=== PATIENT | female | born 1955 | race African-American/Black ===

== ENCOUNTER 2025-06-23 01:06 | Inpatient (IN) | payer OTHER ==
[~2025-06-23] VITALS: Ht 157.5 cm; Wt 64.5 kg
--- NOTE | 2025-06-23 01:53 | ED.PDOC ---
GI ASSESSMENT HPI Comments HPI: 69-year-old female who came to ER for abdominal pain. For the past few hours patient has been experiencing constant, cramping, sharp, epigastric abdominal pain, associated and multiple bouts of nausea, vomiting more than 10 times, loose nonbloody diarrhea more done 10 times Past Medical History: Hepatitis-C, irritable bowel syndrome, mitral valve regurgitation Past Surgical History: Hysterectomy, appendectomy, hernia repair, neck surgery, gastric bypass done last 2017 a [facility] Social History: Denies HPI: Poor Historian. REVIEW OF SYSTEMS: CONSTITUTIONAL: Denies acute: fever, diaphoresis, chills, HEAD: Denies acute: headache, photophobia Eyes: Denies acute: Double vision, vision loss, eye pain, eye discharge. EARS: Denies acute: tinnitus, hearing loss, ear discharge, ear pain, THROAT: Denies acute: sore throat, swelling, difficulty swallowing , pain with swallowing, change in voice. NECK: Denies acute: neck pain, neck swelling, stiff neck. HEART: Denies acute : chest pain, palpitations, LUNGS: Denies acute: SOB, wheezing, cough, hemoptysis ABDOMEN: Denies acute: melena , hematemesis, hematochezia SKIN: Denies acute: rash, redness, lesions, itchiness. EXTREMITIES: Denies acute: calf pain, numbness, tingling, weakness, denies pain in extremity. Denies acute: Low back pain. Neuro: Denies acute: focal neurological deficit, motor or sensory focal neurological deficit, tremors, seizure like activity, confusion, dizziness, change in mental status, loss of bowel or bladder function, cauda equina like symptoms. : Denies acute: dysuria, hematuria, flank pain, increase in urinary frequency. PSYCH: Denies acute: hallucination, suicidal ideation, homicidal ideation. PHYSICAL EXAM: General: ---moderate----acute distress, awake and alert. Head: normocephalic, atraumatic. No raccoon's eyes, no ro sign. Neck: supple, trachea is midline, no swelling. Throat: Normal phonation. Eyes:, no erythema, no purulent discharge, no proptosis, no icterus. Heart: regular rate, regular rhythm, no significant murmur appreciated. Lungs: no apparent respiratory distress, Able to speak in full sentences. No wheezing, no rhonchi, no crackles. No stridors Clear to auscultation bilaterally. Abdomen: Periumbilical tender to palpation, non distended, soft, no guarding, no rebound, + bowel sounds. Neuro: Awake, Alert, oriented to name, self, situation, follows commands GCS=15. Speech is normal. Skin: no petechia, no purpura, no cyanosis, non-pale, not jaundice. Lower extremities: --no - Pitting edema no deformity, no focal swelling, no calf TTP. Makes eye contact. moves all four extremities. Face: no apparent facial droop. ED COURSE: DISCLAIMER: This medical document was created using an electronic medical record system with voice recognition software and computerized dictation system. Although this document has been carefully reviewed, there might still be some phonetic and typographical errors. Occasional wrong-word or "sound-alike" substitutions may have occurred due to the inherent limitations of voice recognition software. These areas are purely typographical due to imperfections of the software programs and do not reflect any compromise in the patient's medical care. Please read the chart carefully and recognize, using context, where these substitutions have occurred. Chief Complaint: Abdominal Pain Time Seen by MD: 01:52 Reviewed Notes: Nurses Notes, Allergies Allergies: Coded Allergies: Latex (Verified Allergy, Unknown, 06/23/25) Uncoded Allergies: CONTRAST (Allergy, Unknown, 06/23/25) Information Source: Patient Mode of Arrival: Ambulatory Was a procedure done? Was a procedure done?: No GI differential Dx Differential Diagnosis: Bowel Obstruction, Gastritis/PUD, Gastroenteritis, Other (DDX include Diverticulitis, colitis, gastroenteritis, acute abdomen, SBO, enteritis, constipation, volvulus, appendicitis, Gallbladder disease, choledocolithiasis, ascending cholangitis, pancreatitis, intraAbdominal mass/neoplasm, hepatitis, UTI, pylonephritis, kidney stone, aneurysm, disse ction, Inflammatory bowel disease, gastroparesis, ischemic bowel,,,,,,Food poisoning, bacterial/parasitic/viral etiology, trauma, diabetes DKA,ovarian torsion, ovarian cyst/mass, tubo-ovarian abscess, ) X-Ray, Labs, Meds, VS Vital Signs Date Time Temp Pulse Resp B/P (MAP) Pulse Ox O2 Delivery O2 Flow Rate FiO2 06/23/25 03:59 88 06/23/25 03:38 78 18 97 Room Air* 0 21 06/23/25 03:38 98.1 72 18 121/78 (92) 97 98.1 06/23/25 01:58 98.3 84 18 172/91 (118) 100 98.3 06/23/25 01:58 84 18 100 Room Air* 0 21 06/23/25 01:08 98.4 96 18 159/86 100 98.4 Lab Test 06/23/25 01:35 Range/Units White Blood Count 11.2 H 4.4-10.8 10^3/uL Red Blood Count 4.56 4.0-5.20 10^6/uL Hemoglobin 12.8 12.2-16.2 g/dL Hematocrit 38.2 36.0-46.0 % Mean Corpuscular Volume 83.7 80.0-100.0 fL Mean Corpuscular Hemoglobin 28.2 28.0-32.0 pg Mean Corpuscular Hemoglobin Concent 33.6 32.0-36.0 g/dL Red Cell Distribution Width 15.3 H 11.8-14.3 % Platelet Count 183 140-450 10^3/uL Mean Platelet Volume 9.9 6.9-10.8 fL Neutrophils (%) (Auto) 91.2 H 37.0-80.0 % Lymphocytes (%) (Auto) 5.7 L 10.0-50.0 % Monocytes (%) (Auto) 2.0 0.0-12.0 % Eosinophils (%) (Auto) 0.0 0.0-7.0 % Basophils (%) (Auto) 1.1 0.0-2.0 % Neutrophils # (Auto) 10.2 H 1.6-8.6 10 ^3/uL Lymphocytes # (Auto) 0.6 0.4-5.4 10 ^3/uL Monocytes # (Auto) 0.2 0-1.3 10 ^3/uL Eosinophils # (Auto) 0 0-0.8 10 ^3/uL Basophils # (Auto) 0.1 0-0.2 10 ^3/uL Nucleated Red Blood Cells 0.0 % Sodium Level 140 136-145 mmol/L Potassium Level 3.7 3.5-5.1 mmol/L Chloride Level 104 98-107 mmol/L Carbon Dioxide Level 22 20-31 mmol/L Anion Gap 14 5-15 Blood Urea Nitrogen 15 9-23 mg/dL Creatinine 0.83 0.550-1.02 mg/dL Glomerular Filtration Rate Calc 75 >90 mL/min BUN/Creatinine Ratio 18.1 10.0-20.0 Serum Glucose 153 H 74-106 mg/dL Hemoglobin A1c 5.5 <5.7 % A1C Lactic Acid Level 1.7 0.4-2.0 mmol/L Calcium Level 9.9 8.7-10.4 mg/dL Total Bilirubin 0.5 0.2-1.0 mg/dL Aspartate Amino Transferase (AST) 33 13-40 U/L Alanine Aminotransferase (ALT) 20 7-40 U/L Alkaline Phosphatase 87 46-116 U/L Total Protein 8.6 H 5.7-8.2 g/dL Albumin 5.0 H 3.2-4.8 g/dL Lipase 35 12-53 U/L Vitamin B12 Level Pending Vitamin D 25-Hydroxy 59.6 30.0-100 ng/mL Thyroid Stimulating Hormone (TSH) 1.49 0.55-4.78 uIU/mL [place] [id number] Ph: [phone] DIAGNOSTIC IMAGING Diagnostic Imaging Report : [id number] Signed PATIENT: SEKOU PITTMAN ACCT: [id number] UNIT: [id number] : 1955 LOC: ER ROOM / BED: / AGE / SEX: 69 / F ADM STATUS: REG ER SERVICE 0122 ORDERING PHYSICIAN: KRISTINA CUENCA DO PROCEDURE(s): ABPL - CT AB PEL WO CON-NO ORAL OR IV REASON: n/v/d abd pain ORDER NUMBER(s): [id number], ACCESSION NUMBER(s): [id number] Exam: CT CT AB PEL WO CON-NO ORAL OR IV History: n/v/d abd pain Comparison Study: None Technique: Multidetector spiral CT of the abdomen was performed from lung bases to pubic symphysis. Imaging was performed without IV contrast. Axial, coronal and sagittal multiplanar reformats were obtained from the axial data set by the technologist. Radiation Dose : 1. Abdomen/Pelvis: CTDIvol 5.38 mGy, DLP 296.86 mGy*cm. Findings: Evaluation of solid organs is limited due to lack of intravenous contrast use. Lung Bases: No acute or significant lung base finding. Normal heart size. No pleural or pericardial effusion. Liver: The liver is normal in size. No focal lesions. Gallbladder and Biliary Tree: Unremarkable Spleen: Unremarkable Pancreas: The pancreas is grossly normal in appearance. Adrenal Glands: Unremarkable Kidneys: Kidneys are grossly normal without calculi or hydronephrosis. Bladder: Grossly unremarkable for degree of distention. Bowel: Diffuse fluid-filled distention of the proximal, mid, and majority of the distal small bowel with loops measuring up to 4.2 cm in diameter. Fairly abrupt transition in the right lower quadrant although exact transition point difficult to visualized due to lack of intra-abdominal bowel fat. No pneumatosis, portal venous gas, or free air. Ascites: Absent Lymphadenopathy: No mesenteric, retroperitoneal or periportal lymphadenopathy. Abdominal Wall and Mesentery: Unremarkable. Vasculature: The visualized abdominal aorta is normal in size and caliber. Evaluation of abdominal and pelvic vessels is limited due to lack of intravenous contrast. Pelvic Organs: Unremarkable Musculoskeletal: No aggressive focal bony lesions, acute fractures or dislocation. IMPRESSION: Fairly high-grade distal small-bowel obstruction with fairly transition in the right lower quadrant, presumably related to an adhesive band. No ischemic changes at this time. Close follow-up recommended. Radiation optimization: All CT scans at this facility use at least one of these dose optimization techniques: automated exposure control mA and/or kV adjustment per patient size (includes targeted exams where dose is matched to clinical indication) or iterative reconstruction. ATED BY: ALFRED HURTADO MD DICTATED DATE/TIME: 06/23/25300 SIGNED BY: ALFRED HURTADO MD SIGNED DATE/TIME: 06/23/25300 CC: Time of 1ST Reevaluation: 01:50 Reevaluation 1ST: Unchanged Patient Education/Counseling: Diagnosis, Treatment Family Education/Counseling: No Family Present Comments MDM: patient presented with the above HPI.--abdominal pain GI symptoms----workup was initiated. patient was found with the above mentioned d iagnosis. the following medications were ordered: please refer to order lists of meds and tests obtained by myself Dr. Cuenca. Patient ED course and VS have been stabilized. Patient has been reassessed in the ED and remained in a stable condition. Pertinent incidental findings were discussed with the patient and/or family. Patient/family voices understanding and is agreeable with plan. Patient has been observed in the ED adequate length of time to insure improvement/stability. Escalation of care considered: Consideration of escalation to observation or admission Patient was found with a SBO. A consult for General surgery was placed. NG tube was ordered. Antibiotics given. Fluids and antiemetics. Patient was ADMITTED to the medicine team for further evaluation and treatment of their presentation. All the reports of any imaging studies that were ordered by myself were reviewed by myself. SEPSIS Sepsis Screen Date sepsis recognized/suspect: Jun 23, 2025 Time Sepsis recognized/suspect: 113 Recent Procedure: No On Antibiotic Therapy: No Respiratory Rate >20: No Heart Rate >90: Yes Temp<36 C (96.8 F) or >38.3 C: No SBP <90 or MAP <65 mmHG: No New Acute Mental Status Change: No Is the patient on CPAP, BIPAP,: No Physician Orders Stool Wbc (06/23/25 01:22) Ova & Parasite Exam (06/23/25 01:22) Stool Bacterial Culture (06/23/25 01:22) Clostridium Difficile Toxin (06/23/25 01:22) Ct Ab Pel Wo Con-No Oral Or Iv (06/23/25 01:22) * Surgical Consult (06/23/25 ) Ng/Orogastric Tube To Lis (06/23/25 03:18) Vital Signs Date Time Temp Pulse Resp B/P (MAP) Pulse Ox O2 Delivery O2 Flow Rate FiO2 06/23/25 03:59 88 06/23/25 03:38 78 18 97 Room Air* 0 21 06/23/25 03:38 98.1 72 18 121/78 (92) 97 98.1 06/23/25 01:58 98.3 84 18 172/91 (118) 100 98.3 06/23/25 01:58 84 18 100 Room Air* 0 21 06/23/25 01:08 98.4 96 18 159/86 100 98.4 Laboratory Tests Test 06/23/25 01:35 Lactic Acid Level 1.7 mmol/L (0.4-2.0) White Blood Count 11.2 10^3/uL (4.4-10.8) H Departure 1 Departure Time of Disposition: 03:18 Impression: Primary Impression: Small bowel obstruction Disposition: ADMITTED INPATIENT Admit to: Tele Condition: Guarded Discharged With: Self Critical Care Note Critical Care Time?: No I personally scribed for KRISTINA CUENCA DO ([email or web address]) on 06/23/25 at 01:53. Electronically submitted by Chetan Beck ([facility]). I personally scribed for KRISTINA CUENCA DO ([email or web address]) on 06/23/25 at 03:21. Electronically submitted by Chetan Beck ([facility] KRISTINA CUENCA DO Jun 23, 2025 01:53
[2025-06-23 01:58] VITALS: PULSE 84; RESP 18; O2SAT 100
[2025-06-23 02:13] LABS: Hematocrit 38.2 % (36.0-46.0); Hemoglobin 12.8 g/dL (12.2-16.2); Mean Corpuscular Hemoglobin 28.2 pg (28.0-32.0); Mean Corpuscular Volume 83.7 fL (80.0-100.0); Nucleated Red Blood Cells % 0.0 %
[2025-06-23] MEDS: SODIUM CHLORIDE 0.9% 1,000 ML IV ONE ×2 (02:20→04:15)
[2025-06-23] MEDS: ONDANSETRON HCL 4 MG/2 ML VIAL IV ONE (02:20)
[2025-06-23 02:22] LABS: Alanine Aminotransferase 20 U/L (7-40); Alkaline Phosphatase 87 U/L (46-116); Anion Gap 14 (5-15); BUN/Creatinine Ratio 18.1 (10.0-20.0); Bilirubin, Total 0.5 mg/dL (0.2-1.0); Blood Urea Nitrogen 15 mg/dL (9-23); Calcium 9.9 mg/dL (8.7-10.4); Carbon Dioxide 22 mmol/L (20-31); Chloride 104 mmol/L (98-107); Lipase 35 U/L (12-53); Potassium 3.7 mmol/L (3.5-5.1); Sodium 140 mmol/L (136-145)
[2025-06-23 02:29] LABS: Albumin 5.0 g/dL (3.2-4.8); Glucose 153 mg/dL (74-106); Total Protein 8.6 g/dL (5.7-8.2)
--- NOTE | 2025-06-23 03:03 | DVH ---
Exam: CT CT AB PEL WO CON-NO ORAL OR IV History: n/v/d abd pain Comparison Study: None Technique: Multidetector spiral CT of the abdomen was performed from lung bases to pubic symphysis. Imaging was performed without IV contrast. Axial, coronal and sagittal multiplanar reformats were obtained from the axial data set by the technologist. Radiation Dose : 1. Abdomen/Pelvis: CTDIvol 5.38 mGy, DLP 296.86 mGy*cm. Findings: Evaluation of solid organs is limited due to lack of intravenous contrast use. Lung Bases: No acute or significant lung base finding. Normal heart size. No pleural or pericardial effusion. Liver: The liver is normal in size. No focal lesions. Gallbladder and Biliary Tree: Unremarkable Spleen: Unremarkable Pancreas: The pancreas is grossly normal in appearance. Adrenal Glands: Unremarkable Kidneys: Kidneys are grossly normal without calculi or hydronephrosis. Bladder: Grossly unremarkable for degree of distention. Bowel: Diffuse fluid-filled distention of the proximal, mid, and majority of the distal small bowel with loops measuring up to 4.2 cm in diameter. Fairly abrupt transition in the right lower quadrant although exact transition point difficult to visualized due to lack of intra-abdominal bowel fat. No pneumatosis, portal venous gas, or free air. Ascites: Absent Lymphadenopathy: No mesenteric, retroperitoneal or periportal lymphadenopathy. Abdominal Wall and Mesentery: Unremarkable. Vasculature: The visualized abdominal aorta is normal in size and caliber. Evaluation of abdominal and pelvic vessels is limited due to lack of intravenous contrast. Pelvic Organs: Unremarkable Musculoskeletal: No aggressive focal bony lesions, acute fractures or dislocation. IMPRESSION: Fairly high-grade distal small-bowel obstruction with fairly transition in the right lower quadrant, presumably related to an adhesive band. No ischemic changes at this time. Close follow-up recommended. Radiation optimization: All CT scans at this facility use at least one of these dose optimization techniques: automated exposure control mA and/or kV adjustment per patient size (includes targeted exams where dose is matched to clinical indication) or iterative reconstruction.
[2025-06-23 03:38] VITALS: PULSE 78; RESP 18; O2SAT 97
--- NOTE | 2025-06-23 04:11 | DVHHPRES ---
History of Present Illness Resident Creating Document: [facility] RESIDENT History of Present Illness Ms Eva Stacy, 69-year-old female with past medical history of Raynaud's syndrome, hepatitis-C positive on remission, lichen planus, IBS, mitral valve regurgitation, multiple abdominal surgeries presented to the ER with the complaints of abdominal pain, nausea, bloating that started since this afternoon 30 minutes after eating a sandwich. She describes the pain as gradual onset, located in the epigastric and periumbilical region. There was no aggravating or relieving factor. The abdominal pain was associated with vomiting and diarrhea. She denies any sick contacts, she is from [place], currently visiting her cousin in [place]. She denies any chest pain, shortness of breath, fever or any other complaints. She will undergo or rectal manometry on 05 January possibly due to chronic constipation. She has done a colonoscopy last year which was unremarkable, she will do FIT test next year. The patient has a cardiac stress test scheduled in November next year, Past medical history: Raynaud syndrome, IBS, mitral valve regurgitation, gastric ulcer, hepatitis-C positive, lichen planus Past surgical history: 2 ectopic , patial hysterectomy, appendectomy, abdominal hernia repair surgery Home medications: Amlodipine 5 mg, Famotidine 40 mg, dicyclomine 20 mg, valacyclovir Smoking history: Quit 20 years ago. Fifty pack years. Alcohol: Quit 3 years ago previously occasional drinker. Allergies: Contrast, latex PCP: Dr. Ania Saini (based on [place]) Pest Management Supervisor: Dr. Meyers Code status: Full code Review of Systems Gastrointestinal: Nausea, Vomiting, Abdominal Pain, Diarrhea Allergies: Coded Allergies: Latex (Verified Allergy, Unknown, 06/23/25) Uncoded Allergies: CONTRAST (Allergy, Unknown, 06/23/25) Exam Vital Signs Vital Signs Date Time Temp Pulse Resp B/P (MAP) Pulse Ox O2 Delivery O2 Flow Rate FiO2 06/23/25 03:59 88 06/23/25 03:38 18 97 Room Air* 0 21 06/23/25 03:38 98.1 121/78 (92) 98.1 Exam Pt is lying on bed General Appearance: Alert, Oriented X3, Cooperative, Mild distress HEENT: Atraumatic, Mucous membranes moist/pink Respiratory: Clear to auscultation, Normal air movement, No added sounds Cardiovascular: Regular rate, Normal S1, Normal S2, No murmurs Abdominal/ : Active bowel sounds, Soft, no distention, epigastric and periumbilical tenderness Extremities: No edema, Normal pulses, No tenderness/swelling Skin: No Significant rash, except past surgical scars Neuro: Normal speech, sensorimotor deficits none Psych/Mental Status: Mental status NL, Mood NL Nurse was there as junior business analyst during examination Labs/Xrays Labs Test 06/23/25 01:35 Range/Units White Blood Count 11.2 H 4.4-10.8 10^3/uL Red Blood Count 4.56 4.0-5.20 10^6/uL Hemoglobin 12.8 12.2-16.2 g/dL Hematocrit 38.2 36.0-46.0 % Mean Corpuscular Volume 83.7 80.0-100.0 fL Mean Corpuscular Hemoglobin 28.2 28.0-32.0 pg Mean Corpuscular Hemoglobin Concent 33.6 32.0-36.0 g/dL Red Cell Distribution Width 15.3 H 11.8-14.3 % Platelet Count 183 140-450 10^3/uL Mean Platelet Volume 9.9 6.9-10.8 fL Neutrophils (%) (Auto) 91.2 H 37.0-80.0 % Lymphocytes (%) (Auto) 5.7 L 10.0-50.0 % Monocytes (%) (Auto) 2.0 0.0-12.0 % Eosinophils (%) (Auto) 0.0 0.0-7.0 % Basophils (%) (Auto) 1.1 0.0-2.0 % Neutrophils # (Auto) 10.2 H 1.6-8.6 10 ^3/uL Lymphocytes # (Auto) 0.6 0.4-5.4 10 ^3/uL Monocytes # (Auto) 0.2 0-1.3 10 ^3/uL Eosinophils # (Auto) 0 0-0.8 10 ^3/uL Basophils # (Auto) 0.1 0-0.2 10 ^3/uL Nucleated Red Blood Cells 0.0 % Sodium Level 140 136-145 mmol/L Potassium Level 3.7 3.5-5.1 mmol/L Chloride Level 104 98-107 mmol/L Carbon Dioxide Level 22 20-31 mmol/L Anion Gap 14 5-15 Blood Urea Nitrogen 15 9-23 mg/dL Creatinine 0.83 0.550-1.02 mg/dL Glomerular Filtration Rate Calc 75 >90 mL/min BUN/Creatinine Ratio 18.1 10.0-20.0 Serum Glucose 153 H 74-106 mg/dL Lactic Acid Level 1.7 0.4-2.0 mmol/L Calcium Level 9.9 8.7-10.4 mg/dL Total Bilirubin 0.5 0.2-1.0 mg/dL Aspartate Amino Transferase (AST) 33 13-40 U/L Alanine Aminotransferase (ALT) 20 7-40 U/L Alkaline Phosphatase 87 46-116 U/L Total Protein 8.6 H 5.7-8.2 g/dL Albumin 5.0 H 3.2-4.8 g/dL Lipase 35 12-53 U/L SEPSIS Sepsis Screen Date sepsis recognized/suspect: Jun 23, 2025 Time Sepsis recognized/suspect: 340 Recent Procedure: No On Antibiotic Therapy: No Respiratory Rate >20: No Heart Rate >90: No Temp<36 C (96.8 F) or >38.3 C: No SBP <90 or MAP <65 mmHG: No New Acute Mental Status Change: No Is the patient on CPAP, BIPAP,: No Physician Orders Urinalysis (06/23/25 01:22) Stool Wbc (06/23/25 01:22) Ova & Parasite Exam (06/23/25 01:22) Stool Bacterial Culture (06/23/25 01:22) Clostridium Difficile Toxin (06/23/25 01:22) Ct Ab Pel Wo Con-No Oral Or Iv (06/23/25 01:22) * Surgical Consult (06/23/25 ) Ng/Orogastric Tube To Lis (06/23/25 03:18) Admit (06/23/25 04:04) Stat Ekg For Chest Pain (06/23/25 04:04) Notify Of Changes From Base (06/23/25 04:04) Tacker Off For 24 Hours (06/23/25 04:04) NS (06/23/25 04:15) Ondansetron Hcl (Zofran) (06/23/25 04:15) Ng To Lis (06/23/25 04:04) Ceftriaxone Ivpb Rocephin (06/23/25 04:15) Metronidazole Ivpb Flagyl (06/23/25 06:00) Vital Signs Date Time Temp Pulse Resp B/P (MAP) Pulse Ox O2 Delivery O2 Flow Rate FiO2 06/23/25 03:59 88 06/23/25 03:38 78 18 97 Room Air* 0 21 06/23/25 03:38 98.1 72 18 121/78 (92) 97 98.1 06/23/25 01:58 98.3 84 18 172/91 (118) 100 98.3 06/23/25 01:58 84 18 100 Room Air* 0 21 06/23/25 01:08 98.4 96 18 159/86 100 98.4 Laboratory Tests Test 06/23/25 01:35 Lactic Acid Level 1.7 mmol/L (0.4-2.0) White Blood Count 11.2 10^3/uL (4.4-10.8) H Medications Medications Dose Ordered Sig/Beth Route Start Time Stop Time Status Last Admin Dose Admin Ondansetron HCl 8 mg ONCE ONCE IV 06/23/25 01:30 06/23/25 01:31 DC 06/23/25 02:20 8 MG Sodium Chloride 1,000 ml @ 1,000 mls/hr Q1H ONCE IV 06/23/25 01:30 06/23/25 02:29 DC 06/23/25 02:20 1,000 MLS/HR Assessment/Plan Assessment/Plan Acute small-bowel obstruction Abdomen pelvis CT: Fairly high-grade distal small-bowel obstruction with fairly transition in the right lower quadrant, presumably related to an adhesive band. No ischemic changes at this time. -IV fluid -NPO -NG tube low intermittent suction -IV ondansetron -IV ceftriaxone and IV metronidazole. -PT/PTT ordered -chest x-ray ordered -surgical consult done -stool WBC ordered Hyperglycemia HbA1c ordered Monitor labs Raynaud syndrome Continue home medication amlodipine 5 mg Mitral regurgitation Follow up outpatient with Cardiology Hepatitis-C virus positive, on remission Lichen planus Home medication: Tacrolimus Hyperalbuminemia Hyperproteinemia -probably due to dehydration, IV fluid given -monitor labs History of PUD IV pantoprazole GI prophylaxis: Pantoprazole DVT prophylaxis: Lovenox Diet: NPO Goals of care discussed with the patient for more than 27 minutes: Full code status Case discussed with , patient and RN Plan discussed with: Patient, Other (Cousin brother, RN) My Orders Orders - [facility] RESIDENT Procedure Category Date Status Time Admit ADMIT 06/23/25 Verified 04:04 Stat Ekg For Chest [facility] 06/23/25 Verified Pain 04:04 Notify Md Of Changes [facility] 06/23/25 Verified From Base 04:04 Tacker Off For [facility] 06/23/25 Verified 24 Hours 04:04 NS [facility] WITH [facility] 06/23/25 Verified 04:15 Ondansetron Hcl [facility]GED WITH [facility] 06/23/25 Verified (Zofran) 04:15 Ng To Lis [facility] 06/23/25 Verified 04:04 Ceftriaxone Ivpb [facility]ED WITH [facility] 06/23/25 Verified Rocephin 04:15 Metronidazole Ivpb MERGED WITH [facility] 06/23/25 Verified Flagyl 06:00 Date of Service: Jun 23, 2025 Billing Provider: ROSALBA WRIGHT MD Common Visit Codes: [id number] INP/OBS CARE (HIGH) Secondary Visit Codes: [id number] CARE PLAN 30 MINUTES [facility] RESIDENT Jun 23, 2025 04:11 ELIZABETH CABALLERO RESIDENT Jun 23, 2025 05:39
[2025-06-23] MEDS ORDERED: ONDANSETRON HCL 4 MG/2 ML VIAL IV PRN (04:15)
--- NOTE | 2025-06-23 07:18 | DVH ---
CHEST RADIOGRAPH Indication: sob Technique: Single frontal view of the chest was obtained COMPARISON: None FINDINGS: Lines and Tubes: None Lungs: Increased interstitial prominence. This may represent pulmonary vascular congestion and/or viral pneumonia. Pleura: No effusion. No pneumothorax. Cardiomediastinal contours: Unremarkable Bones: Unremarkable IMPRESSION: Increased interstitial prominence. This may represent pulmonary vascular congestion and/or viral pneumonia.
[2025-06-23 07:55] VITALS: PULSE 79; RESP 17; O2SAT 99
[2025-06-23 08:44] LABS: Urine Protein, UAD Negative (Negative)
[2025-06-23 08:50] LABS: INR 1.04 (0.9-1.15); Partial Thromboplastin Time 25.2 SEC (24.5-34.5); Prothrombin Time 11.0 sec (9.3-11.8)
[2025-06-23] MEDS: PANTOPRAZOLE 40 MG/10 ML VIAL INJ IV ONE (10:54)
[2025-06-23] MEDS: ENOXAPARIN SOD 40 MG/0.4 ML SYRINGE SC ONE (10:54)
[2025-06-23] MEDS: PANTOPRAZOLE 40 MG/10 ML VIAL INJ IV SCH (10:55)
[2025-06-23] MEDS: ENOXAPARIN SOD 40 MG/0.4 ML SYRINGE SC SCH (10:55)
--- NOTE | 2025-06-23 16:30 | DVHINCON2 ---
Consultation - Surgical Date Seen: Jun 23, 2025 Referring Physician Reason for Consultation Partial small bowel obstruction History of Present Illness History of Present Illness Mrs. Stacy is a 69-year-old female who presented last night with abdominal abdominal pain, nausea, vomiting, diarrhea after eating lunch. Patient had multiple diarrhea and emesis episodes before presenting to the emergency department. Patient states that she was feeling like she was having another IBS episode. States that she had a bowel movement this morning in the emergency department and that her abdominal pain has subsided, and the feeling nauseous anymore and not vomiting. States that she has never had a small-bowel obstruction episode, but she has multiple abdominal surgeries. Denies fevers, chills, changes in urinary habits. Denies loss of appetite, weight loss, blood in the vomit or stool. Past Medical/Surgical History Past Medical/Surgical History Past medical history IBS, mitral valve fibrillation, hypertension, Raynaud's syndrome Past surgical history right knee surgery, ventral incisional hernia with mesh, gastric bypass in 2017 at [facility], gastric ulcer surgery (open), open ectopic pregnancies x2, hysterectomy, open appy Family and Social History Family and Social History Family history noncontributory ETOH/T Ob/drugs denies Allergies and medications Allergies: Coded Allergies: Latex (Verified Allergy, Unknown, 06/23/25) Uncoded Allergies: CONTRAST (Allergy, Unknown, 06/23/25) Review of systems Review of Systems: Deferred Examination Vital signs Vital Signs Date Time Temp Pulse Resp B/P (MAP) Pulse Ox O2 Delivery O2 Flow Rate FiO2 06/23/25 12:01 85 16 146/67 (93) 98 06/23/25 07:55 Room Air* 0 21 06/23/25 07:55 98.6 98.6 Medications Current Medications Medications (Trade) Dose Ordered Sig/Ebth Route PRN Reason Start Time Stop Time Status Last Admin Ondansetron HCl (Zofran) 4 mg Q4HPRN PRN IV NAUSEA / VOMITING 06/23/25 04:15 Metronidazole 100 ml @ 100 mls/hr Q8HR IV 06/23/25 06:00 06/23/25 14:20 Ceftriaxone Sodium 50 ml @ 100 mls/hr DAILY@09 IV 06/24/25 09:00 Pantoprazole Sodium (Protonix) 40 mg DAILY IV 06/23/25 10:00 06/23/25 10:55 Enoxaparin Sodium (Lovenox) 40 mg DAILY SC 06/23/25 10:00 06/23/25 10:55 Amlodipine Besylate (Norvasc Tablet) 5 mg DAILY PO 06/23/25 10:00 Laboratory Labs Test 06/23/25 08:15 06/23/25 08:00 06/23/25 01:35 Range/Units Prothrombin Time 11.0 9.3-11.8 sec Prothrombin Time INR 1.04 0.9-1.15 Activated Partial Thromboplast Time 25.2 24.5-34.5 SEC Urine Color Light-yellow Yellow Urine Clarity Clear Clear Urine pH 6.5 5.0-9.0 Urine Specific [place] 1.014 1.001-1.035 Urine Protein Negative Negative Urine Ketones 1+ H Negative Urine Blood Negative Negative /uL Urine Nitrite Negative Negative Urine Bilirubin Negative Negative Urine Urobilinogen Normal Negative mg/dL Urine Leukocyte Esterase Negative Negative /uL Urine RBC 4 0 - 4 /hpf Urine Microscopic WBC 1 0-5 /HPF Urine Squamous Epithelial Cells Few <5 /hpf Urine Bacteria Few H None Seen /hpf Urine Glucose Normal Normal mg/dL White Blood Count 11.2 H 4.4-10.8 10^3/uL Red Blood Count 4.56 4.0-5.20 10^6/uL Hemoglobin 12.8 12.2-16.2 g/dL Hematocrit 38.2 36.0-46.0 % Mean Corpuscular Volume 83.7 80.0-100.0 fL Mean Corpuscular Hemoglobin 28.2 28.0-32.0 pg Mean Corpuscular Hemoglobin Concent 33.6 32.0-36.0 g/dL Red Cell Distribution Width 15.3 H 11.8-14.3 % Platelet Count 183 140-450 10^3/uL Mean Platelet Volume 9.9 6.9-10.8 fL Neutrophils (%) (Auto) 91.2 H 37.0-80.0 % Lymphocytes (%) (Auto) 5.7 L 10.0-50.0 % Monocytes (%) (Auto) 2.0 0.0-12.0 % Eosinophils (%) (Auto) 0.0 0.0-7.0 % Basophils (%) (Auto) 1.1 0.0-2.0 % Neutrophils # (Auto) 10.2 H 1.6-8.6 10 ^3/uL Lymphocytes # (Auto) 0.6 0.4-5.4 10 ^3/uL Monocytes # (Auto) 0.2 0-1.3 10 ^3/uL Eosinophils # (Auto) 0 0-0.8 10 ^3/uL Basophils # (Auto) 0.1 0-0.2 10 ^3/uL Nucleated Red Blood Cells 0.0 % Sodium Level 140 136-145 mmol/L Potassium Level 3.7 3.5-5.1 mmol/L Chloride Level 104 98-107 mmol/L Carbon Dioxide Level 22 20-31 mmol/L Anion Gap 14 5-15 Blood Urea Nitrogen 15 9-23 mg/dL Creatinine 0.83 0.550-1.02 mg/dL Glomerular Filtration Rate Calc 75 >90 mL/min BUN/Creatinine Ratio 18.1 10.0-20.0 Serum Glucose 153 H 74-106 mg/dL Hemoglobin A1c 5.5 <5.7 % A1C Lactic Acid Level 1.7 0.4-2.0 mmol/L Calcium Level 9.9 8.7-10.4 mg/dL Total Bilirubin 0.5 0.2-1.0 mg/dL Aspartate Amino Transferase (AST) 33 13-40 U/L Alanine Aminotransferase (ALT) 20 7-40 U/L Alkaline Phosphatase 87 46-116 U/L Total Protein 8.6 H 5.7-8.2 g/dL Albumin 5.0 H 3.2-4.8 g/dL Lipase 35 12-53 U/L Vitamin D 25-Hydroxy 59.6 30.0-100 ng/mL Thyroid Stimulating Hormone (TSH) 1.49 0.55-4.78 uIU/mL Examination: GENERAL:Normal (Alert awake and oriented x3), HEENT:Normal (No icterus, neck supple), LUNGS:Normal (Nonlabored breathing with symmetric expansion), ABDOMEN:Normal (Nondistended, soft, depressible, low midline scar healed laparoscopic scars healed, open appy scar healed, nontender) Problem List/Assessment/Plan Problems: (1) Small bowel obstruction Assessment and Plan Mrs. Stacy is a 69-year-old female who presents with a partial small bowel obstruction versus IBS episode. CT scan shows distended loop of small bowel, but patient had multiple bowel movements yesterday and 1 this morning in the ED. Patient does not feel distended, nauseous or vomiting at this moment. They attempted placing a NG tube in the ED and patient did not tolerate, has no tube in place. Given that she is not nauseous or vomiting I will hold off on placing another NG tube, plus she already had a bowel movement in the ED. We will observe overnight, with possible small bowel follow-through in the morning. Plan discussed with Plan discussed with: Patient Visit Coding Surgery Date of Service if different f: Jun 23, 2025 Billing Provider: ROGER SANTANA MD Surgery Visit Codes: [id number] - INP CONSULT <110 MIN ROGER SANTANA MD Jun 23, 2025 16:30
[2025-06-23 17:10] VITALS: BP 138/73; PULSE 75; RESP 18; TEMP 97.9; O2SAT 96
[2025-06-23] MEDS: MORPHINE SULFATE INJ 2 MG/ml SYRG ONE (18:08)
[2025-06-23] MEDS: MORPHINE SULFATE INJ 2 MG/ml SYRG IV PRN (18:17)
[2025-06-23 20:30] VITALS: PULSE 63; RESP 16; O2SAT 99
[2025-06-23 21:00] VITALS: BP 155/73; PULSE 63; RESP 16; TEMP 97.8; O2SAT 99
[2025-06-24] VITALS (8 sets, daily range): BP systolic 133–149; BP diastolic 66–85; PULSE 65–85; RESP 16–18; TEMP 98–98.9; O2SAT 98–100
[2025-06-24] MEDS: PANTOPRAZOLE 40 MG/10 ML VIAL INJ IV ONE (09:35)
[2025-06-24] MEDS: GASTROGRAFIN 120 ML SOL ONE (11:57)
--- NOTE | 2025-06-24 12:04 | DVHPN2 ---
Progress Note - Surgical Date Seen: Jun 24, 2025 Post op day Post op day: 0 Subjective Patient reports: Feels better (Patient feels better today, not distended, not burping, no abdominal pain, states that she has not had flatus or bowel movement since being up in the floor.) Review of Systems: Deferred Objective Vital signs Vital Sign Date Time Temp Pulse Resp B/P (MAP) Pulse Ox O2 Delivery O2 Flow Rate FiO2 06/24/25 09:49 133/81 06/24/25 08:32 98.0 71 17 98 98.0 06/24/25 08:00 Room Air* 0 21 Total Intake and Output 06/23/25 06/23/25 06/24/25 15:00 23:00 07:00 Intake Total 100 ml 0 ml Output Total 200 ml Balance 100 ml -200 ml Medications Current Medications Medications Dose Ordered Sig/Beth Route Start Time Stop Time Status Last Admin Dose Admin Ondansetron HCl 4 mg Q4HPRN PRN IV 06/23/25 04:15 Metronidazole 100 ml @ 100 mls/hr Q8HR IV 06/23/25 06:00 06/24/25 06:04 100 MLS/HR Ceftriaxone Sodium 50 ml @ 100 mls/hr DAILY@09 IV 06/24/25 09:00 06/24/25 09:48 100 MLS/HR Pantoprazole Sodium 40 mg DAILY IV 06/23/25 10:00 06/24/25 09:49 40 MG Enoxaparin Sodium 40 mg DAILY SC 06/23/25 10:00 06/23/25 10:55 40 MG Amlodipine Besylate 5 mg DAILY PO 06/23/25 10:00 06/24/25 09:49 5 MG Morphine Sulfate 1 mg Q4HP PRN IV 06/23/25 17:15 06/23/25 18:17 1 MG Laboratory Laboratory Tests 06/23/25 01:35 Test 06/23/25 01:35 Range/Units Serum Glucose 153 H 74-106 mg/dL Examination: GENERAL:Normal (AAO x3), LUNGS:Normal (Nonlabored breathing with symmetric expansion), ABDOMEN:Normal (Nondistended, low midline scar healed, right lower quadrant scar healed, soft, depressible, nontender) Problem List/Assessment/Plan Problems: (1) Small bowel obstruction Assessment and Plan Mrs. Stacy is a 69-year-old female with the extensive surgical history who presented with a partial small bowel obstruction versus enteritis versus IBS flare, since she got distended after eating and had multiple diarrhea and vomiting episodes. Since being admitted to the hospital she has not had any more emesis episodes, is not distended and does not have any abdominal pain. Given this I offered trial of diet versus continue with small bowel follow- through, patient opted for the small bowel follow-through. 1. Small bowel follow-through was ordered 2. If small bowel follow-through passes she can be started on a clear liquid diet with advancement as tolerated My Orders My Orders Orders - ROGER SANTANA MD Procedure Category Date Status Time Small Bowel Series-W XY 06/24/25 Logged Barium 11:22 Plan discussed with Plan discussed with: Patient Visit Coding Surgery Date of Service if different f: Jun 24, 2025 Billing Provider: ROGER SANTANA MD Surgery Visit Codes: [id number] INP/OBS CARE(HIGH) ROGER SANTANA MD Jun 24, 2025 12:04
--- NOTE | 2025-06-24 13:33 | DVH ---
Procedure: XY SMALL BOWEL SERIES-W BARIUM Reason for study/Clinical History: Partial SBO Comparison Study: None Technique: Single contrast small bowel series performed. 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 Contrast is identified within the colon by 25 minutes. This represents a normal small bowel transit time.
--- NOTE | 2025-06-24 16:20 | DVHPN2 ---
Subjective Patient is currently tolerating clear liquid diet, small bowel series is negative for any small-bowel obstruction. 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 Medications Current Medications Medications Dose Ordered Sig/Beth Route Start Time Stop Time Status Last Admin Dose Admin Ondansetron HCl 4 mg Q4HPRN PRN IV 06/23/25 04:15 Metronidazole 100 ml @ 100 mls/hr Q8HR IV 06/23/25 06:00 06/24/25 15:11 100 MLS/HR Ceftriaxone Sodium 50 ml @ 100 mls/hr DAILY@09 IV 06/24/25 09:00 06/24/25 09:48 100 MLS/HR Pantoprazole Sodium 40 mg DAILY IV 06/23/25 10:00 06/24/25 09:49 40 MG Enoxaparin Sodium 40 mg DAILY SC 06/23/25 10:00 06/24/25 10:00 40 MG Amlodipine Besylate 5 mg DAILY PO 06/23/25 10:00 06/24/25 09:49 5 MG Morphine Sulfate 1 mg Q4HP PRN IV 06/23/25 17:15 06/23/25 18:17 1 MG Laboratory Results Laboratory Tests 06/23/25 01:35 Urinalysis Test 06/23/25 08:00 Urine Color Light-yellow (Yellow) Urine Clarity Clear (Clear) Urine pH 6.5 (5.0-9.0) Urine Specific [place] 1.014 (1.001-1.035) Urine Protein Negative (Negative) Urine Ketones 1+ (Negative) H Urine Blood Negative /uL (Negative) Urine Nitrite Negative (Negative) Urine Bilirubin Negative (Negative) Urine Urobilinogen Normal mg/dL (Negative) Urine Leukocyte Esterase Negative /uL (Negative) Urine RBC 4 /hpf (0 - 4) Urine Microscopic WBC 1 /HPF (0-5) Urine Squamous Epithelial Cells Few /hpf (<5) Urine Bacteria Few /hpf (None Seen) H Urine Glucose Normal mg/dL (Normal) Assessment/Plan Assessment/Plan 69-year-old female with a known history of hypertension, Raynaud's phenomenon, IBS presented to the hospital with the abdominal pain found to have 1. Small-bowel obstruction, currently resolved 2. Hypertension 3. History of Raynaud's phenomenon 4. IBS -clear liquid diet as tolerated, advance diet. Discharge plan. Plan discussed with: Patient Problem List: (1) Small bowel obstruction Date of Service: Jun 24, 2025 Billing Provider: CHEPE LAGUERRE MD Common Visit Codes: [id number] INP/OBS CARE(HIGH) CHEPE LAGUERRE MD Jun 24, 2025 16:20
[2025-06-24] MEDS: ACETAMINOPHEN 325 MG TAB PO PRN (23:17)
[2025-06-25 01:00] VITALS: BP 142/81; PULSE 73; RESP 15; TEMP 98.1; O2SAT 99
[2025-06-25 05:00] VITALS: BP 141/77; PULSE 72; RESP 15; TEMP 98; O2SAT 100
[2025-06-25 08:00] VITALS: PULSE 74; RESP 18; O2SAT 97
[2025-06-25 08:44] VITALS: BP 144/73; PULSE 56; RESP 14; TEMP 98; O2SAT 99
--- NOTE | 2025-06-25 12:26 | DVHPN2 ---
Progress Note - Surgical Date Seen: Jun 25, 2025 Post op day Post op day: 0 Subjective Patient reports: Feels better (Patient feels better today, no abdominal pain, having multiple bowel movements, afebrile with vitals stable, tolerating diet) Review of Systems: Deferred Objective Vital signs Vital Sign Date Time Temp Pulse Resp B/P (MAP) Pulse Ox O2 Delivery O2 Flow Rate FiO2 06/25/25 10:52 144/73 06/25/25 08:44 98.0 56 14 99 98.0 06/25/25 08:00 Room Air* 0 21 Total Intake and Output 06/24/25 06/24/25 06/25/25 15:00 23:00 07:00 Intake Total 780 ml 700 ml Output Total 500 ml Balance 780 ml 200 ml Medications Current Medications Medications Dose Ordered Sig/Beth Route Start Time Stop Time Status Last Admin Dose Admin Ondansetron HCl 4 mg Q4HPRN PRN IV 06/23/25 04:15 Metronidazole 100 ml @ 100 mls/hr Q8HR IV 06/23/25 06:00 06/25/25 05:21 100 MLS/HR Ceftriaxone Sodium 50 ml @ 100 mls/hr DAILY@09 IV 06/24/25 09:00 06/25/25 10:51 100 MLS/HR Pantoprazole Sodium 40 mg DAILY IV 06/23/25 10:00 06/25/25 10:51 40 MG Enoxaparin Sodium 40 mg DAILY SC 06/23/25 10:00 06/25/25 10:52 40 MG Amlodipine Besylate 5 mg DAILY PO 06/23/25 10:00 06/25/25 10:52 5 MG Morphine Sulfate 1 mg Q4HP PRN IV 06/23/25 17:15 06/23/25 18:17 1 MG Acetaminophen 650 mg Q6HP PRN PO 06/24/25 23:15 06/25/25 05:27 650 MG Laboratory Laboratory Tests 06/23/25 01:35 Test 06/23/25 01:35 Range/Units Serum Glucose 153 H 74-106 mg/dL Microbiology Date/Time Source Procedure Growth Status 06/24/25 16:06 Stool Stool Culture - Preliminary Resulted 06/24/25 16:06 Stool Shiga Toxin I & II Pending Resulted 06/24/25 16:06 Stool Clostridium difficile Toxin Assay Pending Resulted Examination: GENERAL:Normal (AAO x3), LUNGS:Normal (Nonlabored breathing with symmetric expansion), ABDOMEN:Normal (Nondistended, soft, depressible, nontender, previous surgical scars healed) Problem List/Assessment/Plan Assessment and Plan Mrs. Stacy is a 69-year-old female with the extensive surgical history who presented with a partial small bowel obstruction versus enteritis versus IBS flare, since she got distended after eating and had multiple diarrhea and vomiting episodes. Since being admitted to the hospital she has not had any more emesis episodes, is not distended and does not have any abdominal pain. Given this I offered trial of diet versus continue with small bowel follow- through, patient opted for the small bowel follow-through. Interval: Patient underwent small bowel follow-through yesterday and contrast was seen in the colon at the 25 minute sagar, she was started on a diet and she is tolerating. She is cleared for discharge per surgical standpoint 1. Cleared for discharge per surgical standpoint My Orders My Orders Orders - ROGER SANTANA MD Procedure Category Date Status Time Soft Diet DIET 06/25/25 Transmitted Breakfast Plan discussed with Plan discussed with: Patient Visit Coding Surgery Date of Service if different f: Jun 25, 2025 Billing Provider: ROGER SANTANA MD Surgery Visit Codes: [id number] INP/OBS CARE(HIGH) ROGER SANTANA MD Jun 25, 2025 12:26
[2025-06-25 13:25] VITALS: BP 144/84; PULSE 67; RESP 16; TEMP 98.3; O2SAT 99
--- NOTE | 2025-06-25 15:41 | DVHDS2 ---
Discharge Summary Date of Admission Jun 23, 2025 at 04:04 Date of Discharge: Jun 25, 2025 Labs/Diagnostic Data: Laboratory Results Test 06/24/25 16:06 06/23/25 08:15 06/23/25 08:00 06/23/25 01:35 Stool for White Cells None seen Prothrombin Time 11.0 sec (9.3-11.8) Prothrombin Time INR 1.04 (0.9-1.15) Activated Partial Thromboplast Time 25.2 SEC (24.5-34.5) Urine Color Light-yellow (Yellow) Urine Clarity Clear (Clear) Urine pH 6.5 (5.0-9.0) Urine Specific [place] 1.014 (1.001-1.035) Urine Protein Negative (Negative) Urine Ketones 1+ (Negative) Urine Blood Negative /uL (Negative) Urine Nitrite Negative (Negative) Urine Bilirubin Negative (Negative) Urine Urobilinogen Normal mg/dL (Negative) Urine Leukocyte Esterase Negative /uL (Negative) Urine RBC 4 /hpf (0 - 4) Urine Microscopic WBC 1 /HPF (0-5) Urine Squamous Epithelial Cells Few /hpf (<5) Urine Bacteria Few /hpf (None Seen) Urine Glucose Normal mg/dL (Normal) White Blood Count 11.2 10^3/uL (4.4-10.8) Red Blood Count 4.56 10^6/uL (4.0-5.20) Hemoglobin 12.8 g/dL (12.2-16.2) Hematocrit 38.2 % (36.0-46.0) Mean Corpuscular Volume 83.7 fL (80.0-100.0) Mean Corpuscular Hemoglobin 28.2 pg (28.0-32.0) Mean Corpuscular Hemoglobin Concent 33.6 g/dL (32.0-36.0) Red Cell Distribution Width 15.3 % (11.8-14.3) Platelet Count 183 10^3/uL (140-450) Mean Platelet Volume 9.9 fL (6.9-10.8) Neutrophils (%) (Auto) 91.2 % (37.0-80.0) Lymphocytes (%) (Auto) 5.7 % (10.0-50.0) Monocytes (%) (Auto) 2.0 % (0.0-12.0) Eosinophils (%) (Auto) 0.0 % (0.0-7.0) Basophils (%) (Auto) 1.1 % (0.0-2.0) Neutrophils # (Auto) 10.2 10 ^3/uL (1.6-8.6) Lymphocytes # (Auto) 0.6 10 ^3/uL (0.4-5.4) Monocytes # (Auto) 0.2 10 ^3/uL (0-1.3) Eosinophils # (Auto) 0 10 ^3/uL (0-0.8) Basophils # (Auto) 0.1 10 ^3/uL (0-0.2) Nucleated Red Blood Cells 0.0 % Sodium Level 140 mmol/L (136-145) Potassium Level 3.7 mmol/L (3.5-5.1) Chloride Level 104 mmol/L (98-107) Carbon Dioxide Level 22 mmol/L (20-31) Anion Gap 14 (5-15) Blood Urea Nitrogen 15 mg/dL (9-23) Creatinine 0.83 mg/dL (0.550-1.02) Glomerular Filtration Rate Calc 75 mL/min (>90) BUN/Creatinine Ratio 18.1 (10.0-20.0) Serum Glucose 153 mg/dL (74-106) Hemoglobin A1c 5.5 % A1C (<5.7) Lactic Acid Level 1.7 mmol/L (0.4-2.0) Calcium Level 9.9 mg/dL (8.7-10.4) Total Bilirubin 0.5 mg/dL (0.2-1.0) Aspartate Amino Transferase (AST) 33 U/L (13-40) Alanine Aminotransferase (ALT) 20 U/L (7-40) Alkaline Phosphatase 87 U/L (46-116) Total Protein 8.6 g/dL (5.7-8.2) Albumin 5.0 g/dL (3.2-4.8) Lipase 35 U/L (12-53) Vitamin B12 Level 751 pg/mL (211-911) Vitamin D 25-Hydroxy 59.6 ng/mL (30.0-100) Thyroid Stimulating Hormone (TSH) 1.49 uIU/mL (0.55-4.78) Other Laboratory Tests 06/23/25 01:35 Brief Hx & Hospital Course: 69-year-old female with a known history of hypertension, Raynaud's phenomenon, IBS presented to the hospital with the abdominal pain found to have small-bowel obstruction. Patient was eventually kept NPO started on NG tube. General surgery evaluated the patient patient was recommended to have small-bowel series. Patient's small-bowel series was done which shows no evidence of bowel obstruction. Patient was started on diet which she tolerated well and currently stable to be discharged with a close follow up as an outpatient with the PCP and General surgery. Condition at Discharge: Stable Final Diagnosis/Problems List 69-year-old female with a known history of hypertension, Raynaud's phenomenon, IBS presented to the hospital with the abdominal pain found to have 1. Small-bowel obstruction, currently resolved 2. Hypertension 3. History of Raynaud's phenomenon 4. IBS Discharge Disposition: Home SNF Discharge Will this Physician continue t: No Discharge Instruct/Medications Diet: Cardiac 2g Na,low cholest Activity: No Restrictions, As Tolerated Follow Up/Referral: Please follow up with the PCP in 1-2 weeks Medications: Resume home medications No Active Prescriptions or Reported Meds Discharge Statement: "Patient was advised to return to the ER or call 911 if any headaches, dizziness, shortness of breath, chest pain, abdominal pain, bleeding, fevers, or worsening of medical condition. Patient was counseled about treatment plan, medications, possible side effects, patientverbalized understanding. All questions were answered to the best of my ability. This discharge took greater then 30 minutes in planning, reviewing documentation, counseling the patient, and discussing with other team members." ASSESSMENT ASSESSMENT Assessment 69-year-old female with a known history of hypertension, Raynaud's phenomenon, IBS presented to the hospital with the abdominal pain found to have 1. Small-bowel obstruction, currently resolved 2. Hypertension 3. History of Raynaud's phenomenon 4. IBS Date of Service: Jun 25, 2025 Billing Provider: CHEPE LAGUERRE MD Common Visit Codes: [id number] DISCH DAY >30min CHEPE LAGUERRE MD Jun 25, 2025 15:41
[2025-06-25 16:56] VITALS: BP 151/88; PULSE 79; RESP 18; TEMP 98.1; O2SAT 99
== END 2025-06-25 18:03 | disposition home or self-care (01) | DRG 390 ==
LOC: ER 01:06 → OVERFLOW 04:04 → EAST 16:44
PROVIDERS: ADMIT Internal Medicine; ATTEND Internal Medicine
PROC: 0D9670Z Drainage of Stomach with Drainage Device, Via Natural or Artificial Opening (ICD-10-PCS; principal; 2025-06-23)
DX: K56.51 Intestinal adhesions [bands], with partial obstruction (principal); E88.09 Other disorders of plasma-protein metabolism, not elsewhere classified; I34.0 Nonrheumatic mitral (valve) insufficiency; I10 Essential (primary) hypertension; B19.20 Unspecified viral hepatitis C without hepatic coma; R73.9 Hyperglycemia, unspecified; L43.9 Lichen planus, unspecified; I73.00 Raynaud's syndrome without gangrene; K58.9 Irritable bowel syndrome, unspecified; Z98.84 Bariatric surgery status; Z90.710 Acquired absence of both cervix and uterus; Z87.11 Personal history of peptic ulcer disease; Z91.041 Radiographic dye allergy status; Z91.040 Latex allergy status; Z79.899 Other long term (current) drug therapy; Z79.621 Long term (current) use of calcineurin inhibitor
CPT/HCPCS: 36415; 71045; 74176; 74250; 80053; 81001; 82306; 82607; 83036; 83605; 83690; 84443; 85025; 85048; 85610; 85730; 87045; 87177; 87427; 87493; 96365; 96375; G0378; J2470; J3490